=== PATIENT | female | born 1980 | race African-American/Black ===

== ENCOUNTER 2019-08-26 22:08 | Emergency (ER) | payer MEDICAID ==
[~2019-08-26] VITALS: Ht 162.6 cm; Wt 86.0 kg
[2019-08-27 02:36] LABS: CLARITY URINE CLEAR (CLEAR); COLOR URINE YELLOW (YELLOW); KETONES URINE NEGATIVE (NEGATIVE); LEUKOCYTE ESTERASE URINE NEGATIVE (NEGATIVE); NITRITE URINE NEGATIVE (NEGATIVE); OCCULT BLOOD URINE NEGATIVE (NEGATIVE); PROTEIN URINE NEGATIVE (NEGATIVE); SPECIFIC GRAVITY URINE 1.027 (1.005-1.030); UROBILINOGEN URINE 0.2 E.U./dL (0.2-1.0)
[2019-08-27 03:49] VITALS: BP 130/75
== END 2019-08-27 04:01 | disposition home or self-care (01) ==
LOC: ER 23:30
DX: R51 Headache (principal); M54.2 Cervicalgia
CPT/HCPCS: 81003; 81025; 87070; 87430; 99283